=== PATIENT | male | born 1990 | race Caucasian/White ===

== ENCOUNTER 2022-10-13 22:05 | Inpatient (IN) ==
[2022-10-13] MEDS ORDERED: PIPERACILLIN/TAZOBACTAM 4.5 GM/120 ML BAG IV ONE (22:21)
[2022-10-13] MEDS ORDERED: VANCOMYCIN CONSULT ACTIVE PRN (22:21)
[2022-10-13] MEDS ORDERED: VANCOMYCIN HCL IV ONE (22:21)
[2022-10-13] MEDS ORDERED: SODIUM CHLORIDE 0.9% IV ONE (22:21)
[2022-10-13] MEDS ORDERED: VANCOMYCIN HCL 1,000 MG in SODIUM CHLORIDE 0.9% 500 ML IV ONE (22:21)
[2022-10-13] MEDS ORDERED: Patient's HEIGHT &/or WEIGHT Needed STA (22:26)
[2022-10-13] MEDS ORDERED: SODIUM CHLORIDE 0.9% 1000ML 1,000 ML IV SCH (22:30)
[2022-10-13] MEDS ORDERED: SODIUM CHLORIDE 0.9% 1000ML 500 ML IV SCH (22:30)
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
[2022-10-13 22:52] LABS: Basophils # (auto) 0.03 K/uL (0-0.2); Basophils % (auto) 0.3 %; Eosinophils # (auto) 0.11 K/uL (0-0.50); Hematocrit (blood only) 31.6 % (42.0-52.0); Hemoglobin 10.1 g/dl (14.0-18.0); Immature Granulocytes # (auto) 0.04 K/uL (0.01-0.20); Immature Granulocytes % (auto) 0.4 %; Lymphocytes # (auto) 1.52 K/uL (1.2-3.4); Lymphocytes % (auto) 13.5 %; Mean Corpuscular Hemoglobin 24.9 pg (25.0-34.0); Mean Platelet Volume 9.1 fL (9.4-12.4); Monocytes # (auto) 0.62 K/uL (0.11-0.59); Monocytes % (auto) 5.5 %; Neutrophils # (auto) 8.92 K/uL (1.40-6.50); Neutrophils % (auto) 79.3 %; Platelet Count 381 K/uL (130-400); RDW Coefficient of Variation 14.4 % (11.5-14.5); RDW Standard Deviation 40.8 fL (36.4-46.3); Red Blood Count 4.05 M/uL (4.70-6.10); White Blood Count 11.24 K/ul (4.8-10.8)
[2022-10-13 22:52] LABS: Appearance Urine Cloudy (Clear); Bacteria Urine Automated 3+ (Negative); Bilirubin Urine Negative (Negative); Blood Urine Trace (Negative); Color Urine Yellow; Glucose Urine UA Negative (Negative); Ketones Urine Negative (Negative); Leukocyte Esterase Urine 3+ (Negative); Nitrite Urine Negative (Negative); Protein Urine Negative (Negative); Specific Gravity Urine 1.013 (1.000-1.030); Urobilinogen Urine Negative (Negative); WBC Urine Automated >30 /hpf (0-5); pH Urine 7.5 (4.5-7.5)
[2022-10-13 23:09] LABS: Alanine Aminotransferase 12 U/L (7-52); Albumin Level 2.9 gm/dl (3.4-5.0); Alkaline Phosphatase 96 U/L (34-104); Anion Gap 7 (3-11); Aspartate Aminotransferase 11 U/L (13-39); BUN Creatinine Ratio 14.6 (10-20); Bilirubin,Total 0.1 mg/dl (0.2-1.0); Blood Urea Nitrogen 7 mg/dl (6-23); Calcium 8.2 mg/dl (8.5-10.1); Carbon Dioxide 25 mmol/L (21-32); Chloride 102 mmol/L (98-107); Creatinine Clr Calc Pharmacy 125.3 ml/min; Est GFR (African American) > 150.0 ml/min; Est GFR (Non-African American) 145.8 ml/min; Glucose 151 mg/dl (70-99(Fasting)); Magnesium 1.5 mg/dl (1.7-2.4); Potassium 3.5 mmol/L (3.5-5.1); Sodium 134 mmol/L (136-145); Total Protein 6.8 gm/dl (6.0-8.3)
[2022-10-13 23:15] LABS: Troponin I High Sensitivity 10.6 pg/ml (0-20)
[2022-10-13] MEDS ORDERED: OPTIRAY 350 100ml IV ONE (23:21)
[2022-10-13] MEDS ORDERED: GABAPENTIN 600 MG TAB PO STA (23:41)
[2022-10-13 23:46] LABS: Adenovirus PCR Not Detected (NotDetected); Bordetella parapertussis PCR Not Detected (NotDetected); Bordetella pertussis PCR Not Detected (NotDetected); Chlamydia pneumoniae PCR Not Detected (NotDetected); Coronavirus 229E PCR Not Detected (NotDetected); Coronavirus CoV-2 (COVID19)PCR Not Detected (NotDetected); Coronavirus HKU1 PCR Not Detected (NotDetected); Coronavirus NL63 PCR Not Detected (NotDetected); Coronavirus OC43PCR Not Detected (NotDetected); Human Metapneumovirus PCR Not Detected (NotDetected); Influenza A PCR Not Detected (NotDetected); Influenza B PCR Not Detected (NotDetected); Mycoplasma pneumoniae PCR Not Detected (NotDetected); Parainfluenza Virus 1 PCR Not Detected (NotDetected); Parainfluenza Virus 2 PCR Not Detected (NotDetected); Parainfluenza Virus 3 PCR Not Detected (NotDetected); Parainfluenza Virus 4 PCR Not Detected (NotDetected); Respiratory Syncytial VirusPCR Not Detected (NotDetected); Rhinovirus/Enterovirus PCR Not Detected (NotDetected)
[2022-10-13] MEDS: MAGNESIUM SULFATE / D5W 1 GM/100 ML BAG IV SCH (23:51)
--- NOTE | 2022-10-13 23:55 | CT Scan Report ---
Exam(s): CT ABDOMEN + PELVIS With Contrast IV Amt: 90ml EXAM: CT Abdomen and Pelvis With Intravenous Contrast CLINICAL HISTORY: Reason for exam: buttock infx, stage 4 Dec Ulcers. TECHNIQUE: Axial computed tomography images of the abdomen and pelvis with intravenous contrast. CTDI is 5.55 mGy and DLP is 297.47 mGy-cm. Automated exposure control was utilized for the study. A dose lowering technique was utilized adhering to the principles of ALARA. CONTRAST: Patient received 90ml of IV contrast COMPARISON: No relevant prior studies available. FINDINGS: Lung bases: Unremarkable. No mass. No consolidation. ABDOMEN: Liver: Unremarkable. No mass. Gallbladder and bile ducts: Unremarkable. No calcified stones. No ductal dilation. Pancreas: Unremarkable. No mass. No ductal dilation. Spleen: Unremarkable. No splenomegaly. Adrenals: Unremarkable. No mass. Kidneys and ureters: Unremarkable. No solid mass. No hydronephrosis. Stomach and bowel: Left upper quadrant colostomy. No obstruction. No mucosal thickening. PELVIS: Appendix: No findings to suggest acute appendicitis. Bladder: Hernandez catheter in place. Reproductive: Unremarkable as visualized. ABDOMEN and PELVIS: Intraperitoneal space: Unremarkable. No free air. No significant fluid collection. Bones/joints: Surgical hardware in place within the upper lumbar spine. No acute fracture. No dislocation. Soft tissues: Stage IV decubitus ulcers extending to the ischial tuberosities bilaterally (image 85 series 2) there is significant sclerosis of the underlying bone involvement is presumed. There is a small air and fluid collection adjacent to the right ischial tuberosity (image 88 series 2) which measures approximately 2.8 x 2.3 cm. Vasculature: Unremarkable. No abdominal aortic aneurysm. Lymph nodes: Unremarkable. No enlarged lymph nodes. IMPRESSION: Bilateral stage IV decubiti ulcers overlying the ischial tuberosities with presumed involvement of the underlying bone. Air and fluid collection adjacent to the right ischial tuberosity measuring up to 2.3 cm. Electronically signed by: Cam Marcos MD 10/13/22 23:53 PM
[2022-10-13 23:59] LABS: C Reactive Protein 25.63 mg/dl (0-0.5)
[2022-10-14] MEDS: MAGNESIUM SULFATE / D5W 1 GM/100 ML BAG IV SCH (00:51)
--- NOTE | 2022-10-14 01:48 | History & Physical Report ---
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 60 mg subcu every 12 hours Neurogenic bladder- Continue oxybutynin Hold doxazosin due to borderline blood pressure at this time History of Present Illness Chief Complaint: The patient is referred to the emergency department from [facility] due to development of a temperature, cough and generalized illness associated with known skin lesions secondary to paraplegia Primary Care Provider: AMERICO De Paz The patient is a 32-year-old male with a past medical history including neurogenic bladder, hiatal hernia with GERD, nutritional deficiency, decubitus ulcer of ischium stage IV, saddle pulmonary embolus, chronic pruritus, hemorrhoid, paraplegia following spinal cord injury. He developed a temperature while at the present today, had been given a dose of Levaquin p.o., and then sent to the emergency department. CT scan of abdomen pelvis showed bilateral stage IV decubitus ulcers overlying the ischial tuberosities with presumed involvement of the underlying bone. Air and fluid collection adjacent to the right ischial tuberosity measuring up to 2.3 cm Allergies Allergy/AdvReac Type Severity Reaction Status Date / Time sulfamethoxazole Allergy Intermediate Unknown Verified 10/14/22 02:17 [From Bactrim] trimethoprim [From Bactrim] Allergy Intermediate Unknown Verified 10/14/22 02:17 Home Medications Medication Instructions Recorded Confirmed Type Lactated Ringers Iv 150 ml IV .HR 10/14/22 10/14/22 History acetaminophen 325 mg tablet 650 mg PO BID 10/14/22 10/14/22 History (Tylenol) ascorbic acid (vitamin C) 500 mg 500 mg PO BID 10/14/22 10/14/22 History tablet (Vitamin C) cyclobenzaprine 10 mg tablet 10 mg PO TID 10/14/22 10/14/22 History diphenhydramine HCl 25 mg capsule 25 mg PO HS 10/14/22 10/14/22 History (Benadryl) doxazosin 8 mg tablet 8 mg PO HS 10/14/22 10/14/22 History enoxaparin 60 mg/0.6 mL 60 mg subcut BID 10/14/22 10/14/22 History subcutaneous syringe (Lovenox) ferrous sulfate 324 mg (65 mg 324 mg PO Q OTHER DAY 10/14/22 10/14/22 History iron) tablet,delayed release gabapentin 600 mg tablet 1,200 mg PO TID 10/14/22 10/14/22 History lidocaine 5 % topical patch 2 patch topical DAILY 10/14/22 10/14/22 History magnesium oxide 800 mg PO BID 10/14/22 10/14/22 History metoprolol tartrate 25 mg tablet 25 mg PO BID 10/14/22 10/14/22 History multivitamin 1 tab PO DAILY 10/14/22 10/14/22 History oxcarbazepine 600 mg tablet 600 mg PO BID 10/14/22 10/14/22 History (Trileptal) oxybutynin chloride 5 mg tablet 5 mg PO BID 10/14/22 10/14/22 History sennosides 8.6 mg-docusate sodium 2 tab-cap PO BID 10/14/22 10/14/22 History 50 mg tablet (Senna-S) Past Med/Surg History Medical History (Updated 10/14/22 @ 01:51 by Sandy Marcos PA-C) Atopic dermatitis 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 traumatic injury Chronic pruritus Constipation Decubitus ulcer of ischium, stage 4 Hemorrhoid Hiatal hernia with GERD without esophagitis Neurogenic bladder Nutritional deficiency 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 Social History Smoking Status: Former smoker Hx Alcohol Use: No Hx Substance Use: No Preferred Language: Latvian Communication Ability: Effective Feltmaker And Weigher Required: No Beliefs That Will Affect Care: None Feels Safe at Home: Yes Review of Systems Review of Systems: The patient denies chest pain, palpitations, shortness of breath, dyspnea on exertion, sore throat, fevers, chills, sweats, nausea, vomiting, diarrhea , constipation, abdominal pain, pelvic pain, blood in urine or stool, dysuria, urinary frequency or urgency, lightheadedness, dizziness, headache, memory loss, loss of consciousness, rash, abnormal bruising or bleeding, generalized arthralgias or myalgias, back or neck pain, or night sweats. The review of systems is otherwise negative other than for that already noted above, and at least 10 systems have been reviewed. Physical Exam Physical Exam: The patient is awake, alert and oriented 3, normocephalic and atraumatic, lying in bed and in no acute distress. HEENT--PERRL, EOMI, mucous membranes and oropharynx dry. Neck--supple. No JVD. No bruits. Thyroid normal, trachea midline, no adenopathy. Heart--normal S1 and S2. No murmurs, rubs or gallops. Lungs--clear bilaterally, no respiratory distress, no accessory muscle use. Abdomen--normal bowel sounds and soft. Nontender. Nondistended, no hernias or masses, no organomegaly. Extremities-- No edema. Dermatologic--multiple large wounds bilateral ischial tuberosity areas with bone exposure as noted in the ED record Neurologic--paraplegia Rheumatologic--paraplegia Psychiatric--normal affect. Results & Data Results & Data Vital Signs (Past 12 Hours) Vital Signs Temp Pulse Pulse Resp BP BP Pulse Ox 10/14/22 01:28 98 H 16 111/60 97 10/13/22 22:17 10/14/22 00:28 97 H 19 110/61 97 10/13/22 23:00 104 H 16 105/61 98 10/13/22 22:53 103 H 24 108/62 97 10/13/22 22:33 37.5 C 106 H 19 110/72 97 O2 Del Method 10/14/22 01:28 Room Air 10/13/22 22:17 Room Air 10/14/22 00:28 Room Air 10/13/22 23:00 10/13/22 22:53 Room Air 10/13/22 22:33 Room Air Laboratory Results Laboratory Results WBC 11.24 K/ul (4.8-10.8) H 10/13/22 22:06 RBC 4.05 M/uL (4.70-6.10) L 10/13/22 22:06 Hgb 10.1 g/dl (14.0-18.0) L 10/13/22 22:06 Hct 31.6 % (42.0-52.0) L 10/13/22 22:06 MCV 78.0 fL (80.0-100.0) L 10/13/22 22:06 MCH 24.9 pg (25.0-34.0) L 10/13/22 22:06 MCHC 32.0 g/dL (32.0-36.0) 10/13/22 22:06 RDW Std Deviation 40.8 fL (36.4-46.3) 10/13/22 22:06 RDW Coeff of Marcela 14.4 % (11.5-14.5) 10/13/22 22:06 Plt Count 381 K/uL (130-400) 10/13/22 22:06 MPV 9.1 fL (9.4-12.4) L 10/13/22 22:06 Immature Gran % (Auto) 0.4 % 10/13/22 22:06 Neut % (Auto) 79.3 % 10/13/22 22:06 Lymph % (Auto) 13.5 % 10/13/22 22:06 [place] % (Auto) 5.5 % 10/13/22 22:06 Eos % (Auto) 1.0 % 10/13/22 22:06 Baso % (Auto) 0.3 % 10/13/22 22:06 Neut # (Auto) 8.92 K/uL (1.40-6.50) H 10/13/22 22:06 Lymph # (Auto) 1.52 K/uL (1.2-3.4) 10/13/22 22:06 [place] # (Auto) 0.62 K/uL (0.11-0.59) H 10/13/22 22:06 Eos # (Auto) 0.11 K/uL (0-0.50) 10/13/22 22:06 Baso # (Auto) 0.03 K/uL (0-0.2) 10/13/22 22:06 Immature Gran # (Auto) 0.04 K/uL (0.01-0.20) 10/13/22 22:06 ESR 101 mm/hr (0-15) H 10/13/22 22:06 Sodium 134 mmol/L (136-145) L 10/13/22 22:06 Potassium 3.5 mmol/L (3.5-5.1) 10/13/22 22:06 Chloride 102 mmol/L (98-107) 10/13/22 22:06 Carbon Dioxide 25 mmol/L (21-32) 10/13/22 22:06 Anion Gap 7 (3-11) 10/13/22 22:06 BUN 7 mg/dl (6-23) 10/13/22 22:06 Creatinine 0.48 mg/dl (0.6-1.4) L 10/13/22 22:06 Est Cr Clr Drug Dosing 125.3 ml/min 10/13/22 22:06 Est GFR ( Amer) > 150.0 ml/min 10/13/22 22:06 Est GFR (Non-Af Amer) 145.8 ml/min 10/13/22 22:06 BUN/Creatinine Ratio 14.6 (10-20) 10/13/22 22:06 Glucose 151 mg/dl (70-99(Fasting)) H 10/13/22 22:06 Lactate 1.5 mmol/L (0.4-2.0) 10/13/22 22:06 Calcium 8.2 mg/dl (8.5-10.1) L 10/13/22 22:06 Magnesium 1.5 mg/dl (1.7-2.4) L 10/13/22 22:06 Total Bilirubin 0.1 mg/dl (0.2-1.0) L 10/13/22 22:06 Direct Bilirubin 0.0 mg/dl (0-0.2) 10/13/22 22:06 AST 11 U/L (13-39) L 10/13/22 22:06 ALT 12 U/L (7-52) 10/13/22 22:06 Alkaline Phosphatase 96 U/L (34-104) 10/13/22 22:06 Troponin I High Sens 10.6 pg/ml (0-20) 10/13/22 22:06 C-Reactive Protein 25.63 mg/dl (0-0.5) H 10/13/22 22:06 Total Protein 6.8 gm/dl (6.0-8.3) 10/13/22 22: Albumin 2.9 gm/dl (3.4-5.0) L 10/13/22 22:06 Procalcitonin 0.37 ng/ml (0-0.5) 10/13/22 22: Urine Color Yellow 10/13/22 22: Urine Appearance Cloudy (Clear) A 10/13/22 22: Urine pH 7.5 (4.5-7.5) 10/13/22 22: Ur Specific [place] 1.013 (1.000-1.030) 10/13/22 22: Urine Protein Negative (Negative) 10/13/22 22: Urine Glucose (UA) Negative (Negative) 10/13/22 22: Urine Ketones Negative (Negative) 10/13/22 22: Urine Blood Trace (Negative) H 10/13/22: Urine Nitrite Negative (Negative) 10/13/22 22: Urine Bilirubin Negative (Negative) 10/13/22 22: Urine Urobilinogen Negative (Negative) 10/13/22 22: Ur Leukocyte Esterase 3+ (Negative) H 10/13/22 22: Urine WBC (Auto) >30 /hpf (0-5) H 10/13/22 22: Urine RBC (Auto) 5-10 /hpf (0-4) H 10/13/22 22: U Hyaline Cast (Auto) 10-30 /lpf (0-5) H 10/13/22 22: U Epithel Cells (Auto) 10-20 /lpf (0-5) H 10/13/22 22: Urine Bacteria (Auto) 3+ (Negative) H 10/13/22 22:26 Adenovirus (PCR) Not Detected (NotDetected) 10/13/22 22: B. pertussis DNA (PCR) Not Detected (NotDetected) 10/13/22 22:26 B.parapertussis DNA PCR Not Detected (NotDetected) 10/13/22 22:26 C. pneumoniae DNA (PCR) Not Detected (NotDetected) 10/13/22 22:26 Coronavirus OC43 (PCR) Not Detected (NotDetected) 10/13/22 22:26 Coronavirus HKU1 (PCR) Not Detected (NotDetected) 10/13/22 22:26 Coronavirus 229E (PCR) Not Detected (NotDetected) 10/13/22 22:26 SARS-CoV-2 (PCR) Not Detected (NotDetected) 10/13/22 22:26 Coronavirus NL63 (PCR) Not Detected (NotDetected) 10/13/22 22:26 Human Metapneumovir PCR Not Detected (NotDetected) 10/13/22 22:26 Influenza Type A (PCR) Not Detected (NotDetected) 10/13/22 22:26 Influenza Type B (PCR) Not Detected (NotDetected) 10/13/22 22:26 M. pneumoniae (PCR) Not Detected (NotDetected) 10/13/22 22:26 Parainfluenza 1 (PCR) Not Detected (NotDetected) 10/13/22 22:26 Parainfluenza 2 (PCR) Not Detected (NotDetected) 10/13/22 22:26 Parainfluenza 3 (PCR) Not Detected (NotDetected) 10/13/22 22:26 Parainfluenza 4 (PCR) Not Detected (NotDetected) 10/13/22 22:26 RSV (PCR) Not Detected (NotDetected) 10/13/22 22:26 Entero/Rhino (PCR) Not Detected (NotDetected) 10/13/22 22:26 Impressions Abdomen/Pelvis CT 10/13/22 22:16 Exam(s): CT ABDOMEN + PELVIS With Contrast IV Amt: 90ml EXAM: CT Abdomen and Pelvis With Intravenous Contrast CLINICAL HISTORY: Reason for exam: buttock infx, stage 4 Dec Ulcers. TECHNIQUE: Axial computed tomography images of the abdomen and pelvis with intravenous contrast. CTDI is 5.55 mGy and DLP is 297.47 mGy-cm. Automated exposure control was utilized for the study. A dose lowering technique was utilized adhering to the principles of ALARA. CONTRAST: Patient received 90ml of IV contrast COMPARISON: No relevant prior studies available. FINDINGS: Lung bases: Unremarkable. No mass. No consolidation. ABDOMEN: Liver: Unremarkable. No mass. Gallbladder and bile ducts: Unremarkable. No calcified stones. No ductal dilation. Pancreas: Unremarkable. No mass. No ductal dilation. Spleen: Unremarkable. No splenomegaly. Adrenals: Unremarkable. No mass. Kidneys and ureters: Unremarkable. No solid mass. No hydronephrosis. Stomach and bowel: Left upper quadrant colostomy. No obstruction. No mucosal thickening. PELVIS: Appendix: No findings to suggest acute appendicitis. Bladder: Hernandez catheter in place. Reproductive: Unremarkable as visualized. ABDOMEN and PELVIS: Intraperitoneal space: Unremarkable. No free air. No significant fluid collection. Bones/joints: Surgical hardware in place within the upper lumbar spine. No acute fracture. No dislocation. Soft tissues: Stage IV decubitus ulcers extending to the ischial tuberosities bilaterally (image 85 series 2) there is significant sclerosis of the underlying bone involvement is presumed. There is a small air and fluid collection adjacent to the right ischial tuberosity (image 88 series 2) which measures approximately 2.8 x 2.3 cm. Vasculature: Unremarkable. No abdominal aortic aneurysm. Lymph nodes: Unremarkable. No enlarged lymph nodes. IMPRESSION: Bilateral stage IV decubiti ulcers overlying the ischial tuberosities with presumed involvement of the underlying bone. Air and fluid collection adjacent to the right ischial tuberosity measuring up to 2.3 cm. Electronically signed by: Cam Marcos MD 10/13/22 23:53 PM Low Code Status & VTE Plan Code Status Full code VTE Prophylaxis Plan VTE Prophylaxis will be ordered: Yes PG Care Time/CCT Total # of Minutes Spent Total Time Spent with Patient: Total time spent is greater than 50% in coordination of care (as documented) at patient's floor/unit and/or counseling patient: Coding Level of Care Code 93190 INT INP/OBS CARE 3/75MIN Diagnoses Sepsis A41.9 Sepsis acute organ dysfunction status: unspecified Sepsis type: sepsis due to unspecified organism Osteomyelitis M86.9 Osteomyelitis location: unspecified site Osteomyelitis type: unspecified type Atopic dermatitis L20.9 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 traumatic injury G89.21 Neurogenic bladder N31.9 Hiatal hernia with GERD without esophagitis K44.9; K21.9 Constipation K59.00 Nutritional deficiency E63.9 Decubitus ulcer of ischium, stage 4 L89.304 Saddle pulmonary embolus I26.92 Chronic pruritus L29.9 Hemorrhoid K64.9 Paraplegia following spinal cord injury G82.20 (1) Sepsis Sepsis acute organ dysfunction status: unspecified Sepsis type: sepsis due to unspecified organism Qualified Code(s): A41.9 - Sepsis, unspecified organism (2) Osteomyelitis Osteomyelitis location: unspecified site Osteomyelitis type: unspecified type Qualified Code(s): M86.9 - Osteomyelitis, unspecified
[2022-10-14] MEDS: NSS + 20MEQ KCL 20 MEQ/1,000 ML BAG IV SCH ×2 (02:30→20:50)
[2022-10-14] MEDS ORDERED: ONDANSETRON INJ 2 MG/ML 2 ML VIAL IV PRN (02:39)
[2022-10-14] MEDS ORDERED: VANCOMYCIN CONSULT ACTIVE PRN (02:39)
[2022-10-14] MEDS: MoRPHine SULFATE 2 MG/ML CARP IV PRN ×5 (04:16→21:06)
[2022-10-14] MEDS: VANCOMYCIN HCL 1,000 MG in SODIUM CHLORIDE 0.9% 250 ML IV SCH ×3 (04:24→21:07)
[2022-10-14] MEDS: PIPERACILLIN/TAZOBACTAM 4.5 GM in DEXTROSE 5% 100 ML IV SCH ×3 (05:55→22:35)
--- NOTE | 2022-10-14 07:42 | Electrocardiogram Report ---
Test Reason : Blood Pressure : / mmHG Vent. Rate : 107 BPM Atrial Rate : 107 BPM P-R Int : 128 ms QRS Dur : 074 ms QT Int : 340 ms P-R-T Axes : 064 058 057 degrees QTc Int : 453 ms Sinus tachycardia Incomplete right bundle branch block Borderline ECG No previous ECGs available Confirmed by Matt Linares ([id number]) on 10/14/2022 7:41:58 AM Referred By: [facility] Confirmed By:Morales Linares
--- NOTE | 2022-10-14 07:56 | XRay Report ---
XR chest 1V portable HISTORY: Sepsis COMPARISON: None. FINDINGS: The lungs are clear. Cardiac silhouette is normal in size. No pleural effusions. No pneumot horax. Lower thoracolumbar spinal fusion hardware is noted. IMPRESSION: No acute process. ACT 112: Negative or not required by law. Electronically signed by: Baron Godwin M.D. 10/14/2022 7:55 AM
[2022-10-14] MEDS: ACETAMINOPHEN 325 MG TAB PO SCH ×2 (08:08→20:58)
[2022-10-14] MEDS: ENOXAPARIN INJ 60 MG/0.6 ML SYR SQ SCH ×2 (08:08→21:01)
[2022-10-14] MEDS: METOPROLOL TARTRATE 25 MG TAB PO SCH ×2 (08:09→20:59)
[2022-10-14] MEDS: OXYBUTYNIN CHLORIDE 5 MG TAB PO SCH ×2 (08:09→20:59)
[2022-10-14] MEDS: OXcarbazepine 150 MG TABLET PO SCH ×2 (08:09→21:00)
[2022-10-14] MEDS: DOCUSATE SODIUM/SENNA 50/8.6MG TAB PO SCH ×2 (08:09→20:59)
[2022-10-14] MEDS: GABAPENTIN 600 MG TAB PO SCH ×3 (08:10→21:01)
[2022-10-14] MEDS: MULTIVITAMIN TAB PO SCH (08:10)
[2022-10-14] MEDS: ASCORBIC ACID 500 MG TAB PO SCH ×2 (08:10→20:59)
[2022-10-14] MEDS: CYCLOBENZAPRINE HCL 10 MG TAB PO SCH ×3 (08:10→21:01)
[2022-10-14] MEDS: MAGNESIUM OXIDE 400 MG TAB PO SCH ×2 (08:10→20:58)
[2022-10-14] MEDS: FERROUS SULFATE 325 MG TAB PO SCH (08:10)
--- NOTE | 2022-10-14 10:05 | Pharmacy Report ---
Pharmacy PK ABX Note - Date of Service October 14, 2022 - Assessment and Plan Assessment 32 year old M receiving VANCOMCYIN/ZOSYN for treatment of DECUB ULCERS W/ OSTEO. Pertinent microbiologic data includes: CULTURES PENDING. Hx of MRSA. Patient with paraplegia. Plan Vancomycin * Loading dose: 2244 mg IV x 1 * Maintenance dose: 1000 mg IV every 8 hours * Regimen is predicted to achieve target AUC/CLAUDIA of 400-600 mg/L.hr * Trough ordered for 10/15 @0330 Pharmacy will continue to follow and will adjust dose/frequency as necessary. Thank you. Pharmacy has transitioned to AUC monitoring for vancomycin. AUC/CLAUDIA is the preferred PK/PD target and is associated with decreased risk of nephrotoxicity compared to traditional trough targets.
[2022-10-14] MEDS: COLLAGENASE OINT 30 GM TUBE EXT SCH (12:16)
[2022-10-14] MEDS: PROSOURCE NO CARB 30 ML/PKT PO SCH ×2 (13:51→21:02)
--- NOTE | 2022-10-14 14:21 | Hospitalist Progress Note ---
Date of Service October 14, 2022 Assessment & Plan (1) Decubitus ulcer of ischium, stage 4: Plan: Stage IV pressure ulcer of the bilateral ischium. Chronic since 2020. I was able to visualize the wounds today. Erythematous bases with slough noted. Will plan to apply Santyl to the wounds daily, and consult the wound care nurse. Right ischial wound would benefit from a wound VAC. Blood, wound, and urine cultures are pending. Continue IV Vancomycin and Zosyn pending culture results. Wounds vs UTI as primary source of infection. Zofran 4 mg IV every 6 hours as needed Acetaminophen 650 mg p.o. every 6 hours as needed for mild pain or fever NSS + KCl 20 mEq at 80 mils per hour Low air loss mattress, waffle boots, reposition q2hrs for offloading. [employer] protein supplement ordered. Ultimately, the patient will need close follow-up and wound care after disch arge. Patient would benefit from [facility] stay after discharge. He will need an offloading mattress in addition to a ROHO cushion for offloading in his wheel chair. Recommend increased protein intake as an outpatient as well. Patient will also need close follow-up with the wound center. Refer to [facility] upon discharge. (2) Acute osteomyelitis: Plan: CT 10/13/22 showing bilateral ischial wounds with bony involvement of the ischial tuberostities. Fluid collection measuring 2.3cm adjacent to the right ischial tuberosity. Consult ID. Consider IR consult for drainage of fluid collection to the right ischial tuberosity and bone bx. (3) Paraplegia following spinal cord injury: Plan: Paraplegia secondary to spinal cord injury/chronic pain syndrome Stable neurologic deficits Continue cyclobenzaprine/gabapentin/Trileptal/oxybutynin/senna S (4) Saddle pulmonary embolus: Plan: On chronic Lovenox 60 mg sq every 12 hours. (5) Neurogenic bladder: Plan: Continue oxybutynin Hold doxazosin due to borderline blood pressure at this time. (6) Pressure injury of deep tissue of right ankle: Plan: Patient also has a deep tissue injury to the right anterior ankle. No open areas noted. Patient states this occurred from wearing a compression stocking. Monitor. Protect with an Optifoam. Will order bilateral waffle boots for offloading as well. (7) Urinary tract infection: Plan: UA with 3+ bacteria. Culture is pending. Unclear if UTI or ischial wounds are primary source of infection. Continue IV Vancomyin and Zosyn pending sensitivities. Plan Disposition: med/surg tele DVT prophylaxis: on chronic Lovenox sub q Diet: Regular Code: Full Admission and Anticipated Discharge Date Admission Date: October 14, 2022 Subjective 32 year old SCI [facility] admitted with possible sepsis. Patient was recently moved into [facility] approximately 3 days ago. Unfortunately, he became febrile and was transferred to [facility] for further evaluation. He was noted to have bilateral stage IV pressure ulcers of the ischium on admission. CT scan shows bony involvement consistent with osteomyelitis. ? infection r/t wounds of ischium vs UTI. UA with 3+ bacteria. Blood, urine, and wound cultures are pendin g. Patient reports a hx of these wounds since at least 2020. Possibly underwent surgical vs bedside debridement at initial presentation. He reports he had a wound VAC in place until recently. Patient reports he tries to offload, but does sit in his wheelchair at least 3hrs per day. Review of Systems Constitutional: no fever and no chills Physical Exam Constitutional: average body habitus; no acute distress Eyes: + anicteric sclerae ENMT: Ears: no hearing impairment Neck: normal visual inspection Respiratory: normal respiratory effort, lungs clear to auscultation Cardiovascular: Rate/Rhythm: regular rate and regular rhythm Gastrointestinal (Abdomen): Inspection/Auscultation: normal bowel sounds Percussion/Palpation: abdomen soft; abdomen nontender Ostomy device intact. Musculoskeletal: Head/Neck/Chest: normocephalic Skin: + wound (bilateral ischium wounds. Erythematous base with slough noted. ) Psychiatric: A+Ox3, euthymic affect Results & Data Results & Data Vital Signs (Past 12 Hours) Vital Signs Temp Pulse Pulse Resp BP Pulse Ox O2 Del Method 10/14/22 12:15 36.6 C 78 16 96/63 L 100 Room Air 10/14/22 11:25 Room Air 10/14/22 09:18 37.2 C 10/14/22 07:53 101 H 10/14/22 07:52 37.9 C H 95 H 16 105/66 97 Room Air 10/14/22 03:56 110 H 10/14/22 02:40 37.4 C 96 H 18 104/68 98 Room Air 10/14/22 02:18 Room Air PG Care Time/CCT Total # of Minutes Spent Total Time Spent with Patient: Total time spent is greater than 50% in coordination of care (as documented) at patient's floor/unit and/or counseling patient: Coding [place] [address] SUB INP/OBS CARE 3/50MIN Patient Type Established History Detailed Exam Detailed Medical Decision Making High Complexity Diagnoses Decubitus ulcer of ischium, stage 4 L89.304 Acute osteomyelitis M86.10 Paraplegia following spinal cord injury G82.20 Saddle pulmonary embolus I26.92 Neurogenic bladder N31.9 Pressure injury of deep tissue of right ankle L89.516 Urinary tract infection N39.0
[2022-10-14] MEDS: diphenhydrAMINE Capsule 25 MG CAP PO SCH (20:58)
[2022-10-15] MEDS: MoRPHine SULFATE 2 MG/ML CARP IV PRN ×2 (02:47→08:38)
[2022-10-15] MEDS ORDERED: VANCOMYCIN LEVEL ONE (03:30)
[2022-10-15 04:05] LABS: Basophils # (auto) 0.02 K/uL (0-0.2); Basophils % (auto) 0.4 %; Eosinophils # (auto) 0.65 K/uL (0-0.50); Eosinophils % (auto) 14.3 %; Hematocrit (blood only) 29.6 % (42.0-52.0); Hemoglobin 9.1 g/dl (14.0-18.0); Immature Granulocytes # (auto) 0.01 K/uL (0.01-0.20); Immature Granulocytes % (auto) 0.2 %; Lymphocytes # (auto) 1.47 K/uL (1.2-3.4); Lymphocytes % (auto) 32.2 %; Mean Corpuscular Hgb Conc 30.7 g/dL (32.0-36.0); Mean Corpuscular Volume 81.3 fL (80.0-100.0); Mean Platelet Volume 8.7 fL (9.4-12.4); Monocytes # (auto) 0.37 K/uL (0.11-0.59); Monocytes % (auto) 8.1 %; Neutrophils # (auto) 2.04 K/uL (1.40-6.50); Neutrophils % (auto) 44.8 %; Platelet Count 307 K/uL (130-400); RDW Coefficient of Variation 14.4 % (11.5-14.5); RDW Standard Deviation 42.6 fL (36.4-46.3); Red Blood Count 3.64 M/uL (4.70-6.10); White Blood Count 4.56 K/ul (4.8-10.8)
[2022-10-15 04:19] LABS: Alanine Aminotransferase 10 U/L (7-52); Albumin Globulin Ratio 0.8 (0.9-2); Albumin Level 2.7 gm/dl (3.4-5.0); Alkaline Phosphatase 74 U/L (34-104); Anion Gap 5 (3-11); Aspartate Aminotransferase 9 U/L (13-39); BUN Creatinine Ratio 17.2 (10-20); Bilirubin,Total 0.2 mg/dl (0.2-1.0); Blood Urea Nitrogen 11 mg/dl (6-23); Calcium 8.2 mg/dl (8.5-10.1); Carbon Dioxide 26 mmol/L (21-32); Chloride 106 mmol/L (98-107); Creatinine Clr Calc Pharmacy 140.3 ml/min; Est GFR (African American) > 150.0 ml/min; Est GFR (Non-African American) 130.5 ml/min; Globulin 3.4 gm/dl (2.5-4.0); Glucose 90 mg/dl (70-99(Fasting)); Magnesium 1.8 mg/dl (1.7-2.4); Potassium 4.2 mmol/L (3.5-5.1); Sodium 137 mmol/L (136-145); Total Protein 6.1 gm/dl (6.0-8.3)
[2022-10-15] MEDS: VANCOMYCIN HCL 1,000 MG in SODIUM CHLORIDE 0.9% 250 ML IV SCH ×3 (05:19→20:16)
[2022-10-15] MEDS: PIPERACILLIN/TAZOBACTAM 4.5 GM in DEXTROSE 5% 100 ML IV SCH ×3 (06:43→22:28)
[2022-10-15] MEDS: ACETAMINOPHEN 325 MG TAB PO SCH ×2 (08:33→20:23)
[2022-10-15] MEDS: ASCORBIC ACID 500 MG TAB PO SCH ×2 (08:34→20:24)
[2022-10-15] MEDS: CYCLOBENZAPRINE HCL 10 MG TAB PO SCH ×3 (08:35→20:24)
[2022-10-15] MEDS: ENOXAPARIN INJ 60 MG/0.6 ML SYR SQ SCH ×2 (08:35→20:23)
[2022-10-15] MEDS: DOCUSATE SODIUM/SENNA 50/8.6MG TAB PO SCH ×2 (08:35→20:32)
[2022-10-15] MEDS: GABAPENTIN 600 MG TAB PO SCH ×3 (08:36→20:25)
[2022-10-15] MEDS: MULTIVITAMIN TAB PO SCH (08:36)
[2022-10-15] MEDS: METOPROLOL TARTRATE 25 MG TAB PO SCH ×2 (08:36→20:32)
[2022-10-15] MEDS: MAGNESIUM OXIDE 400 MG TAB PO SCH ×2 (08:36→20:26)
[2022-10-15] MEDS: OXcarbazepine 150 MG TABLET PO SCH ×2 (08:37→20:23)
[2022-10-15] MEDS: PROSOURCE NO CARB 30 ML/PKT PO SCH ×2 (08:37→20:26)
[2022-10-15] MEDS: OXYBUTYNIN CHLORIDE 5 MG TAB PO SCH ×2 (08:37→20:25)
[2022-10-15] MEDS: COLLAGENASE OINT 30 GM TUBE EXT SCH ×2 (09:12→10:32)
[2022-10-15] MEDS ORDERED: MoRPHine SULFATE 2 MG/ML CARP IV STA ×2 (11:33→18:53)
--- NOTE | 2022-10-15 11:43 | Hospitalist Progress Note ---
Date of Service October 15, 2022 Assessment & Plan (1) Decubitus ulcer of ischium, stage 4: Plan: Stage IV pressure ulcer of the bilateral ischium. Chronic since 2020. - Continue to apply Santyl to the wounds daily, and consult the wound care nurse. Right ischial wound would benefit from a wound VAC. - Blood, wound, and urine cultures are pending. Continue IV Vancomycin and Zosyn pending culture results. - Acetaminophen 650 mg p.o. every 6 hours as needed for mild pain or fever - Add Percocet (tiered) for pain control not relieved by APAP - Cap fluids - Low air loss mattress, waffle boots, reposition q2hrs for offloading. - ProSource protein supplement ordered. - Probed R ischial wound with q-tip and sent for deep wound culture - Ideally, if could obtain records from [facility] where pt last received care, this would be helpful, order placed Ultimately, the patient will need close follow-up and wound care after discharge. Patient would benefit from [facility] stay after discharge. He will need an offloading mattress in addition to a ROHO cushion for offloading in his wheel chair. Recommend increased protein intake as an outpatient as well. Patient will also need close follow-up with the wound center. Refer to [facility] upon discharge. (2) Acute osteomyelitis: Plan: - CT 10/13/22 showing bilateral ischial wounds with bony involvement of the ischial tuberosities. Fluid collection measuring 2.3cm adjacent to the right ischial tuberosity. ESR 101 - Discussed w/ IR consult re: drainage of adjacent fluid or bone bx. 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 (5) Paraplegia following spinal cord injury: Plan: Paraplegia secondary to spinal cord injury/chronic pain syndrome - Stable neurologic deficits - Continue cyclobenzaprine/gabapentin/Trileptal/oxybutynin/senna S (6) Neurogenic bladder: Plan: Continue oxybutynin - Hold doxazosin due to borderline blood pressure at this time. (7) Pressure injury of deep tissue of right ankle: Plan: Patient also has a deep tissue injury to the right anterior ankle. No open areas noted. Patient states this occurred from wearing a compression stocking. - Protect with an Optifoam. - Will order bilateral waffle boots for offloading as well. Plan Plan as outlined above. Plan to be d/w Dr. Trent. Admission and Anticipated Discharge Date Admission Date: October 14, 2022 Subjective Patient seen on daily rounds this morning. He is currently lying in bed. Doesn't really engage much in conversation. Verbalized no specific complaints or concerns. Physical Exam Physical Exam: GENERAL: 32 yo wd/wn M. NAD. LUNGS: Clear to auscultation bilaterally. CARDIOVASCULAR: Regular rate and rhythm. SKIN: b/l stage IV ischial wounds, R slightly larger than left. No active bleeding. Moderate slough noted. Results & Data Results & Data Vital Signs (Past 12 Hours) Vital Signs Temp Pulse Pulse Resp BP Pulse Ox O2 Del Method 10/15/22 10:55 36.6 C 69 16 101/65 99 Room Air 10/15/22 06:48 36.6 C 86 18 100/66 100 Room Air 10/15/22 02:55 36.5 C 75 16 98/66 L 100 Room Air 10/15/22 01:29 101 H Laboratory Results 10/15/22 03:43 10/15/22 03:43 PG Care Time/CCT Total # of Minutes Spent Total Time Spent with Patient: Total time spent is greater than 50% in coordination of care (as documented) at patient's floor/unit and/or counseling patient: Coding Level of Care Code 47027 SUB INP/OBS CARE 3/50MIN Diagnoses Decubitus ulcer of ischium, stage 4 L89.304 Acute osteomyelitis M86.10 Urinary tract infection N39.0 Saddle pulmonary embolus I26.92 Paraplegia following spinal cord injury G82.20 Neurogenic bladder N31.9 Pressure injury of deep tissue of right ankle L89.516
[2022-10-15] MEDS: oxyCODONE/ACETAMINOPHEN 5mg/325mg TAB PO PRN ×3 (12:19→23:45)
[2022-10-15] MEDS: NSS + 20MEQ KCL 20 MEQ/1,000 ML BAG IV SCH (13:23)
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
[2022-10-15] MEDS ORDERED: MoRPHine SULFATE 2 MG/ML CARP ONE (18:56)
[2022-10-15] MEDS: diphenhydrAMINE Capsule 25 MG CAP PO SCH (20:25)
[2022-10-16] MEDS: VANCOMYCIN HCL 1,000 MG in SODIUM CHLORIDE 0.9% 250 ML IV SCH ×3 (03:47→20:40)
[2022-10-16] MEDS: PIPERACILLIN/TAZOBACTAM 4.5 GM in DEXTROSE 5% 100 ML IV SCH ×3 (05:32→22:21)
[2022-10-16] MEDS: NSS + 20MEQ KCL 20 MEQ/1,000 ML BAG IV SCH ×2 (06:27→22:20)
[2022-10-16 08:34] LABS: Basophils # (auto) 0.02 K/uL (0-0.2); Basophils % (auto) 0.6 %; Eosinophils # (auto) 0.74 K/uL (0-0.50); Eosinophils % (auto) 21.8 %; Hematocrit (blood only) 31.2 % (42.0-52.0); Hemoglobin 9.7 g/dl (14.0-18.0); Immature Granulocytes # (auto) 0.01 K/uL (0.01-0.20); Immature Granulocytes % (auto) 0.3 %; Lymphocytes # (auto) 1.17 K/uL (1.2-3.4); Lymphocytes % (auto) 34.4 %; Mean Corpuscular Hemoglobin 24.8 pg (25.0-34.0); Mean Corpuscular Hgb Conc 31.1 g/dL (32.0-36.0); Mean Corpuscular Volume 79.8 fL (80.0-100.0); Mean Platelet Volume 8.9 fL (9.4-12.4); Monocytes # (auto) 0.19 K/uL (0.11-0.59); Monocytes % (auto) 5.6 %; Neutrophils # (auto) 1.27 K/uL (1.40-6.50); Neutrophils % (auto) 37.3 %; Platelet Count 355 K/uL (130-400); RDW Standard Deviation 40.9 fL (36.4-46.3); Red Blood Count 3.91 M/uL (4.70-6.10)
[2022-10-16 08:51] LABS: Alanine Aminotransferase 61 U/L (7-52); Albumin Globulin Ratio 0.8 (0.9-2); Albumin Level 2.8 gm/dl (3.4-5.0); Alkaline Phosphatase 233 U/L (34-104); Anion Gap 3 (3-11); Aspartate Aminotransferase 52 U/L (13-39); BUN Creatinine Ratio 18.3 (10-20); Bilirubin,Total 0.1 mg/dl (0.2-1.0); Blood Urea Nitrogen 11 mg/dl (6-23); Calcium 8.4 mg/dl (8.5-10.1); Carbon Dioxide 29 mmol/L (21-32); Chloride 105 mmol/L (98-107); Creatinine Clr Calc Pharmacy 147.1 ml/min; Est GFR (African American) > 150.0 ml/min; Globulin 3.4 gm/dl (2.5-4.0); Glucose 96 mg/dl (70-99(Fasting)); Magnesium 1.6 mg/dl (1.7-2.4); Sodium 137 mmol/L (136-145); Total Protein 6.2 gm/dl (6.0-8.3)
[2022-10-16] MEDS ORDERED: MAGNESIUM SULFATE / D5W 1 GM/100 ML BAG IV ONE (09:09)
[2022-10-16] MEDS: ACETAMINOPHEN 325 MG TAB PO SCH ×2 (09:14→20:42)
[2022-10-16] MEDS: OXcarbazepine 150 MG TABLET PO SCH ×2 (09:15→20:45)
[2022-10-16] MEDS: MULTIVITAMIN TAB PO SCH (09:15)
[2022-10-16] MEDS: FERROUS SULFATE 325 MG TAB PO SCH (09:15)
[2022-10-16] MEDS: ASCORBIC ACID 500 MG TAB PO SCH ×2 (09:16→20:43)
[2022-10-16] MEDS: CYCLOBENZAPRINE HCL 10 MG TAB PO SCH ×3 (09:16→20:44)
[2022-10-16] MEDS: OXYBUTYNIN CHLORIDE 5 MG TAB PO SCH ×2 (09:16→20:45)
[2022-10-16] MEDS: DOCUSATE SODIUM/SENNA 50/8.6MG TAB PO SCH ×2 (09:16→20:41)
[2022-10-16] MEDS: MAGNESIUM OXIDE 400 MG TAB PO SCH ×2 (09:17→20:41)
[2022-10-16] MEDS: METOPROLOL TARTRATE 25 MG TAB PO SCH ×2 (09:17→20:42)
[2022-10-16] MEDS: PROSOURCE NO CARB 30 ML/PKT PO SCH ×2 (09:17→20:46)
[2022-10-16] MEDS: ENOXAPARIN INJ 60 MG/0.6 ML SYR SQ SCH ×2 (09:17→20:44)
[2022-10-16] MEDS: GABAPENTIN 600 MG TAB PO SCH ×3 (09:17→20:42)
[2022-10-16] MEDS: oxyCODONE/ACETAMINOPHEN 5mg/325mg TAB PO PRN ×5 (09:39→23:19)
--- NOTE | 2022-10-16 10:46 | Ultrasound Report ---
US gallbladder CLINICAL HISTORY: RUQ abd/pain TECHNIQUE: Multiple real-time sonographic images of the right upper quadrant were obtained. Comparison: None available at the time of this dictation. FINDINGS: The liver is diffusely homogenous with normal contour and echogenicity. No focal mass lesions are see n. No intrahepatic ductal dilatation is seen. No gallstones or sludge are identified within the g allbladder. The gallbladder wall is not thickened. There is no pericholecystic fluid present. A sonog raphic Suarez's sign was not elicited by the health insurance adjuster. The common duct measures 0.5 cm in diamet er at the level of the hepatic artery. The visualized portions of the pancreas appear normal. The right kidney shows normal echogenicity, cortical thickness and renal contour. The right kidney sh ows no evidence of hydronephrosis or mass. Trace free fluid is seen. IMPRESSION: Unremarkable right upper quadrant ultrasound. ACT 112: Negative or not required by law. Electronically signed by: Osiel Lamar M.D. 10/16/2022 10:45 AM
--- NOTE | 2022-10-16 10:48 | Electrocardiogram Report ---
Test Reason : Blood Pressure : / mmHG Vent. Rate : 079 BPM Atrial Rate : 079 BPM P-R Int : 138 ms QRS Dur : 082 ms QT Int : 388 ms P-R-T Axes : 073 066 055 degrees QTc Int : 444 ms Normal sinus rhythm Normal ECG When compared with ECG of 13-OCT-2022 22:17, No significant change was found Confirmed by Matt Linares ([id number]) on 10/16/2022 10:48:15 AM Referred By: Zandra DRISCOLL Confirmed By:Morales Linares
[2022-10-16] MEDS: COLLAGENASE OINT 30 GM TUBE EXT SCH (13:11)
--- NOTE | 2022-10-16 14:39 | Hospitalist Progress Note ---
Date of Service October 16, 2022 Assessment & Plan (1) Decubitus ulcer of ischium, stage 4: Plan: Stage IV pressure ulcer of the bilateral ischium. Chronic since 2020. - Continue to apply Santyl to the wounds daily, and consult the wound care nurse. Right ischial wound would benefit from a wound VAC. - Blood, wound, and urine cultures are pending. Continue IV Vancomycin and Zosyn pending culture results. - Acetaminophen 650 mg p.o. every 6 hours as needed for mild pain or fever - Add Percocet (tiered) for pain control not relieved by APAP - Low air loss mattress, waffle boots, reposition q2hrs for offloading. - ProSource protein supplement ordered. - Probed R ischial wound with q-tip and sent for deep wound culture - prelim Group B strep and staph - Ideally, if could obtain records from [facility] where pt last received care, this would be helpful, order placed Ultimately, the patient will need close follow-up and wound care after discharge. [facility]. He will need an offloading mattress in addition to a ROHO cushion for offloading in his wheel chair. Recommend increased protein intake as an outpatient as well. Patient will also need close follow-up with the wound center. Refer to [facility] upon discharge. (2) Acute osteomyelitis: Plan: - CT 10/13/22 showing bilateral ischial wounds with bony involvement of the ischial tuberosities. Fluid collection measuring 2.3cm adjacent to the right ischial tuberosity. ESR 101 - Discussed w/ IR consult re: drainage of adjacent fluid or bone bx. - Recommended deep wound culture with probing decubitus would obtain same fluid that is tracking/spreading to bone which was obtained 10/15 - Consulted ID - anticipate will require 6w (minimum) of tailored IV abx the rapy; however, will also require wound and bone debridement for definitive treatment - I have reached out to [facility] to d/w medical record administrator of the care home to determine if they would like to pursue transfer for this patient to a tertiary center as general surgery nor orthopedics will perform bone debridement (3) Urinary tract infection: Plan: - UA grossly abnormal - empirically on Vanc/Zosyn as above - Prelim urine cx with growth of 2 gram neg bacilli - Await speciation and tailor accordingly in conjunction with wound cultures (4) Abdominal pain: Plan: - Brief episode that occurred after eating dinner on 10/15 - Underwent RUQ ultrasound which is completely normal - Able to eat/drink today and has had no complaints (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 (6) Paraplegia following spinal cord injury: Plan: Paraplegia secondary to spinal cord injury/chronic pain syndrome - Stable neurologic deficits - Continue cyclobenzaprine/gabapentin/Trileptal/oxybutynin/senna S (7) Neurogenic bladder: Plan: Continue oxybutynin - Hold doxazosin due to borderline blood pressure at this time. (8) Pressure injury of deep tissue of right ankle: Plan: Patient also has a deep tissue injury to the right anterior ankle. No open areas noted. Patient states this occurred from wearing a compression stocking. - Protect with an Optifoam. - Will order bilateral waffle boots for offloading as well. Plan Continue plan as outlined above. Await call back from [facility] regarding plans to transfer patient to tertiary center for definitive treatment of his osteomyelitis. Repeat labs ordered for tomorrow morning. Will d/w Dr. Trent. Admission and Anticipated Discharge Date Admission Date: October 14, 2022 Subjective Patient seen on daily rounds this morning. He underwent ultrasound this AM due to c/o RUQ pain that occurred after eating dinner yesterday. No vomiting. He has had no complaints of abd pain or n/v this AM. He has no c/o fever, chills, cp or dyspnea. Physical Exam Physical Exam: GENERAL: 32 yo wd/wn M. NAD. LUNGS: Clear to auscultation bilaterally. CARDIOVASCULAR: Regular rate and rhythm. ABDOMEN: Soft, Nontender, nondistended. +BS. Neg salmeron's sign. Ostomy bag with stool. SKIN: b/l stage IV ischial wounds, R slightly larger than left. Results & Data Results & Data Vital Signs (Past 12 Hours) Vital Signs Temp Pulse Resp BP Pulse Ox O2 Del Method 10/16/22 12:11 36.6 C 78 16 95/55 L 98 Room Air 10/16/22 07:46 36.7 C 66 16 94/60 L 98 Room Air 10/16/22 04:00 36.7 C 69 20 90/59 L 97 Room Air Laboratory Results 10/16/22 07:43 10/16/22 07:43 PG Care Time/CCT Total # of Minutes Spent Total Time Spent with Patient: Total time spent is greater than 50% in coordination of care (as documented) at patient's floor/unit and/or counseling patient: Coding Level of Care Code 45893 SUB INP/OBS CARE 3/50MIN Diagnoses Decubitus ulcer of ischium, stage 4 L89.304 Acute osteomyelitis M86.10 Urinary tract infection N39.0 Abdominal pain R10.9 Saddle pulmonary embolus I26.92 Paraplegia following spinal cord injury G82.20 Neurogenic bladder N31.9 Pressure injury of deep tissue of right ankle L89.516
--- NOTE | 2022-10-16 14:48 | Pharmacy Report ---
Pharmacy PK ABX Note - Date of Service October 16, 2022 - Assessment and Plan Assessment 10/16: * Patient continues of vancomycin and piperacillin/tazobactam. * Trough level drawn 10/15 at 0330 rendered level of 11.3 mg/dL. [employer] predicts that continuing 1g IV Q8H will continue to achieve target AUC. * Culture Data: * Left buttock culture growing group B beta strep. * Buttock decubitus culture growing group B beta strep and staphylococcus species. * Urine catch (clean) growing two separate species of gram negative bacilli. * Blood cultures 2/2 NGTD. Initial Assessment, 10/14: * 32 year old M receiving VANCOMCYIN/ZOSYN for treatment of DECUB ULCERS W/ OSTEO. Pertinent microbiologic data includes: CULTURES PENDING. Hx of MRSA. Patient with paraplegia. Plan Vancomycin * Continue maintenance dosing at 1000 mg IV every 8 hours * Regimen is predicted to achieve target AUC/CLAUDIA of 400-600 mg/L.hr * Recommendations for deescalation pending full sensitivities, will plan to continue current regimen until new data available. Continue Zosyn 4.5gm IV every 8 hours. Pharmacy will continue to follow and will adjust dose/frequency as necessary. Thank you. Pharmacy has transitioned to AUC monitoring for vancomycin. AUC/CLAUDIA is the preferred PK/PD target and is associated with decreased risk of nephrotoxicity compared to traditional trough targets.
[2022-10-16] MEDS: diphenhydrAMINE Capsule 25 MG CAP PO SCH (20:44)
[2022-10-17] MEDS ORDERED: MoRPHine SULFATE 2 MG/ML CARP IV ONE (00:40)
[2022-10-17] MEDS: VANCOMYCIN HCL 1,000 MG in SODIUM CHLORIDE 0.9% 250 ML IV SCH ×2 (03:54→12:20)
[2022-10-17] MEDS: oxyCODONE/ACETAMINOPHEN 5mg/325mg TAB PO PRN ×4 (03:55→17:11)
[2022-10-17] MEDS: PIPERACILLIN/TAZOBACTAM 4.5 GM in DEXTROSE 5% 100 ML IV SCH (05:48)
[2022-10-17 07:29] LABS: Hematocrit (blood only) 32.7 % (42.0-52.0); Hemoglobin 10.1 g/dl (14.0-18.0); Mean Corpuscular Hemoglobin 24.5 pg (25.0-34.0); Mean Corpuscular Hgb Conc 30.9 g/dL (32.0-36.0); Mean Corpuscular Volume 79.4 fL (80.0-100.0); Mean Platelet Volume 8.8 fL (9.4-12.4); Platelet Count 337 K/uL (130-400); RDW Coefficient of Variation 14.3 % (11.5-14.5); RDW Standard Deviation 41.5 fL (36.4-46.3); Red Blood Count 4.12 M/uL (4.70-6.10); White Blood Count 3.48 K/ul (4.8-10.8)
[2022-10-17 07:53] LABS: Est GFR (African American) > 150.0 ml/min; Est GFR (Non-African American) 143.2 ml/min; Magnesium 1.8 mg/dl (1.7-2.4)
[2022-10-17] MEDS: METOPROLOL TARTRATE 25 MG TAB PO SCH (07:57)
[2022-10-17] MEDS: PROSOURCE NO CARB 30 ML/PKT PO SCH (07:58)
[2022-10-17] MEDS: OXYBUTYNIN CHLORIDE 5 MG TAB PO SCH (07:58)
[2022-10-17] MEDS: MULTIVITAMIN TAB PO SCH (07:58)
[2022-10-17] MEDS: ASCORBIC ACID 500 MG TAB PO SCH (07:59)
[2022-10-17] MEDS: OXcarbazepine 150 MG TABLET PO SCH (07:59)
[2022-10-17] MEDS: CYCLOBENZAPRINE HCL 10 MG TAB PO SCH ×2 (07:59→14:10)
[2022-10-17] MEDS: MAGNESIUM OXIDE 400 MG TAB PO SCH (08:02)
[2022-10-17] MEDS: GABAPENTIN 600 MG TAB PO SCH ×2 (08:02→14:10)
[2022-10-17] MEDS: DOCUSATE SODIUM/SENNA 50/8.6MG TAB PO SCH (08:03)
[2022-10-17] MEDS: ENOXAPARIN INJ 60 MG/0.6 ML SYR SQ SCH (08:03)
[2022-10-17] MEDS: ACETAMINOPHEN 325 MG TAB PO SCH (08:03)
[2022-10-17] MEDS: COLLAGENASE OINT 30 GM TUBE EXT SCH (10:45)
--- NOTE | 2022-10-17 11:55 | Discharge Summary ---
Date of Service October 17, 2022 Admission HPI Per Admitting Provider The patient is a 32-year-old male with a past medical history including neurogenic bladder, hiatal hernia with GERD, nutritional deficiency, decubitus ulcer of ischium stage IV, saddle pulmonary embolus, chronic pruritus, hemorrhoid, paraplegia following spinal cord injury. He developed a temperature while at the present today, had been given a dose of Levaquin p.o., and then sent to the emergency department. CT scan of abdomen pelvis showed bilateral stage IV decubitus ulcers overlying the ischial tuberosities with presumed involvement of the underlying bone. Air and fluid collection adjacent to the right ischial tuberosity measuring up to 2.3 cm Principal Diagnosis 1. Sepsis Syndrome (resolved) 2. A/c bilateral ischial osteomyelitis 3. Polymicrobial UTI - Pseudomonas and ESBL E. coli 4. Stage IV ischial wounds Discharge Exam GENERAL: 32 yo wd/wn M. NAD. LUNGS: Clear to auscultation bilaterally. CARDIOVASCULAR: Regular rate and rhythm. ABDOMEN: Soft, Nontender, nondistended. +BS. Neg salmeron's sign. Ostomy bag with stool. SKIN: b/l stage IV ischial wounds, R slightly larger than left. Discharge Data Allergies Allergy/AdvReac Type Severity Reaction Status Date / Time sulfamethoxazole Allergy Intermediate Unknown Verified 10/14/22 02:17 [From Bactrim] trimethoprim [From Bactrim] Allergy Intermediate Unknown Verified 10/14/22 02:17 Consultations 10/14/22 00:11 ED Decision to Admit Stat 10/14/22 14:35 Consult Infectious Diseases Routine 10/15/22 12:00 Consult Infectious Diseases Routine 10/17/22 10:01 Burn CD for patient Routine Ordered Studies Abdomen/Pelvis CT 10/13/22 22:16 Exam(s): CT ABDOMEN + PELVIS With Contrast IV Amt: 90ml EXAM: CT Abdomen and Pelvis With Intravenous Contrast CLINICAL HISTORY: Reason for exam: buttock infx, stage 4 Dec Ulcers. TECHNIQUE: Axial computed tomography images of the abdomen and pelvis with intravenous contrast. CTDI is 5.55 mGy and DLP is 297.47 mGy-cm. Automated exposure control was utilized for the study. A dose lowering technique was utilized adhering to the principles of ALARA. CONTRAST: Patient received 90ml of IV contrast COMPARISON: No relevant prior studies available. FINDINGS: Lung bases: Unremarkable. No mass. No consolidation. ABDOMEN: Liver: Unremarkable. No mass. Gallbladder and bile ducts: Unremarkable. No calcified stones. No ductal dilation. Pancreas: Unremarkable. No mass. No ductal dilation. Spleen: Unremarkable. No splenomegaly. Adrenals: Unremarkable. No mass. Kidneys and ureters: Unremarkable. No solid mass. No hydronephrosis. Stomach and bowel: Left upper quadrant colostomy. No obstruction. No mucosal thickening. PELVIS: Appendix: No findings to suggest acute appendicitis. Bladder: Hernandez catheter in place. Reproductive: Unremarkable as visualized. ABDOMEN and PELVIS: Intraperitoneal space: Unremarkable. No free air. No significant fluid collection. Bones/joints: Surgical hardware in place within the upper lumbar spine. No acute fracture. No dislocation. Soft tissues: Stage IV decubitus ulcers extending to the ischial tuberosities bilaterally (image 85 series 2) there is significant sclerosis of the underlying bone involvement is presumed. There is a small air and fluid collection adjacent to the right ischial tuberosity (image 88 series 2) which measures approximately 2.8 x 2.3 cm. Vasculature: Unremarkable. No abdominal aortic aneurysm. Lymph nodes: Unremarkable. No enlarged lymph nodes. IMPRESSION: Bilateral stage IV decubiti ulcers overlying the ischial tuberosities with presumed involvement of the underlying bone. Air and fluid collection adjacent to the right ischial tuberosity measuring up to 2.3 cm. Electronically signed by: Cam Marcos MD 10/13/22 23:53 PM Chest X-Ray 10/13/22 22:17 XR chest 1V portable HISTORY: Sepsis COMPARISON: None. FINDINGS: The lungs are clear. Cardiac silhouette is normal in size. No pleural effusions. No pneumothorax. Lower thoracolumbar spinal fusion hardware is noted. IMPRESSION: No acute process. ACT 112: Negative or not required by law. Electronically signed by: Baron Godwin M.D. 10/14/2022 7:55 AM Gallbladder Ultrasound 10/16/22 07:18 US gallbladder CLINICAL HISTORY: RUQ abd/pain TECHNIQUE: Multiple real-time sonographic images of the right upper quadrant we re obtained. Comparison: None available at the time of this dictation. FINDINGS: The liver is diffusely homogenous with normal contour and echogenicity. No focal mass lesions are seen. No intrahepatic ductal dilatation is seen. No gallstones or sludge are identified within the gallbladder. The gallbladder wall is not thickened. There is no pericholecystic fluid present. A sonographic M urphy's sign was not elicited by the defective cigarette slitter. The common duct measures 0.5 cm in diameter at the level of the hepatic artery. The visualized portions of the pancreas appear normal. The right kidney shows normal echogenicity, cortical thickness and renal contour. The right kidney shows no evidence of hydronephrosis or mass. Trace free fluid is seen. IMPRESSION: Unremarkable right upper quadrant ultrasound. ACT 112: Negative or not required by law. Electronically signed by: Osiel Lamar M.D. 10/16/2022 10:45 AM Hospital Course (1) Decubitus ulcer of ischium, stage 4: 32 yo paraplegic inmate who presented to [facility] on 10/13 with sepsis syndrome d/t UTI + Acute on chronic osteomyelitis Stage IV pressure ulcer of the bilateral ischium. Chronic since 2020. - Continue to apply Santyl to the wounds daily, and consult the wound care nurse. Right ischial wound would benefit from a wound VAC. - Blood, wound, and urine cultures are pending. Continue IV Vancomycin and Zosyn pending culture results. - Acetaminophen 650 mg p.o. every 6 hours as needed for mild pain or fever - Add Percocet (tiered) for pain control not relieved by APAP - Low air loss mattress, waffle boots, reposition q2hrs for offloading. - Pro[employer] protein supplement ordered-would continue this. - Probed R ischial wound with q-tip and sent for deep wound culture - Group B strep and MRSA Ultimately, the patient will need close follow-up and wound care after discharge. [facility] would benefit from [facility] after discharge. He will need an offloading mattress in addition to a ROHO cushion for offloading in his wheel chair. Recommend increased protein intake as an outpatient as well. Patient will also need close follow-up with the wound center. Could refer to [facility] upon discharge given proximity to [facility]. (2) Acute osteomyelitis: - CT 10/13/22 showing bilateral ischial wounds with bony involvement of the ischial tuberosities. Fluid collection measuring 2.3cm adjacent to the right ischial tuberosity. ESR 101 - Discussed w/ IR consult re: drainage of adjacent fluid or bone bx. - Recommended deep wound culture with probing decubitus would obtain same fluid that is tracking/spreading to bone which was obtained 10/15-growth of GBS and MRSA as above - Consulted ID - anticipate will require 6w (minimum) of tailored IV abx therapy; however, will also require wound and bone debridement for definitive treatment - Discussed plan of care with bilingual medical assistant at [facility] re: recommendations for treatment from ID which would involve debridement of wounds as well as bone debridement for definitive treatment of osteo + IV antibiotics - Discussed with Dr. Murrell, she is agreeable to patient being transferred for appropriate treatment. Plastics not available this week to perform surgery and patient is known from prior treatment at [facility] - Contacted [facility], d/w hospitalists, Dr. Rogers and Dr. Regalado, both which accepted patient but cover different campuses. Ultimately, whichever one has a bed available first will take him. - Transfer paperwork filed, order for chart to be copied and images to burned to disc - [facility] updated (3) Urinary tract infection: - UA grossly abnormal - empirically on Vanc/Zosyn as above - Prelim urine cx with growth of 2 gram neg bacilli-ESBL E. coli + Pseudomonas - Continue Zosyn (4) Abdominal pain: - Brief episode that occurred after eating dinner on 10/15 - Underwent RUQ ultrasound which is completely normal - Able to eat/drink today and has had no further complaints for me - Noted that he was medicated with a dose of IV Morphine overnight by resident for 2mg (5) Saddle pulmonary embolus: - On chronic Lovenox 60 mg sq every 12 hours. (6) Paraplegia following spinal cord injury: Paraplegia secondary to spinal cord injury/chronic pain syndrome - Stable neurologic deficits - Continue cyclobenzaprine/gabapentin/Trileptal/oxybutynin/senna S (7) Neurogenic bladder: Continue oxybutynin - Doxazosin held due to borderline blood pressure at this time-however, believe that his current BPs (93/57) are his baseline (8) Pressure injury of deep tissue of right ankle: Patient also has a deep tissue injury to the right anterior ankle. No open areas noted. Patient states this occurred from wearing a compression stocking. - Protect with an Optifoam. - Will order bilateral waffle boots for offloading as well. Plan Patient is medically stable for discharge/transfer to [facility] once bed is available. He can be transported via ground BLS. Paperwork filled out and jail updated. Continue all current interventions in the interim until transfer. Above plan of care has been d/w Dr. Trent. Total Time Total Time Spent Total Time Spent (In Minutes): >30 minutes Discharge Plan Discharge Items Patient Disposition: Transfer Acute Care Hospital Reason For Visit: OSTEOMYELITIS B/L ISCHIAL TUBEROSITIES Discharge Diagnosis: osteomyelitis b/l ischial tuberosities polymicrobial urinary tract infection stage IV ischial wounds Condition on Discharge: Fair Activity: Resume your previous activity Non-emergency contact: Primary Care Provider Call non-emergency contact if: you have any medication questions Follow-up/Referrals: [facility] DR[facility] [Primary Care Provider] - Diet: Regular Addtl Attending Provider Instructions: Patient being transferred to [facility] in order to undergo surgical debridement and ongoing IV antibiotic therapy to treat your acute on chronic bone infection. Currently on the following IV antibiotics: Zosyn 4.5g IV q8h and Vancomycin 1000mg IV q8h Pending Studies at Discharge: No Stand-Alone Forms: [facility] Skilled Items Patient informed of condition?: Yes DNR: No Discharge Level of Care: Other Communicable Disease: No Discharge Prognosis: Stable Lines: Peripheral IV Urinary Catheter: Yes Medications and DC Order Prescriptions: [place] No Carb 15-60 gram-kcal/30 mL Liquid In Packet 30 ml PO BID Qty: 0 0RF Continued multivitamin Tablet 1 tab PO DAILY cyclobenzaprine [Flexeril] 10 mg Tablet 10 mg PO TID acetaminophen [Tylenol] 325 mg Tablet 650 mg PO BID gabapentin 600 mg Tablet 1,200 mg PO TID Rx Instructions: Crush sennosides-docusate sodium [Senna-S] 8.6-50 mg Tablet 2 tab-cap PO BID doxazosin 8 mg Tablet 8 mg PO HS ascorbic acid (vitamin C) [Vitamin C] 500 mg Tablet 500 mg PO BID diphenhydramine HCl [Benadryl] 25 mg Capsule 25 mg PO HS lidocaine 5 % Adhesive Patch,Medicated 2 patch TOPICAL DAILY Rx Instructions: leave on most painful area for up to 12 hrs oxcarbazepine [Trileptal] 600 mg Tablet 600 mg PO BID oxybutynin chloride 5 mg Tablet 5 mg PO BID enoxaparin [Lovenox] 60 mg/0.6 mL Syringe 60 mg SUBCUT BID metoprolol tartrate 25 mg Tablet 25 mg PO BID ferrous sulfate 324 mg (65 mg iron) Tablet,Delayed Release (Dr/Ec) 324 mg PO Q OTHER DAY magnesium oxide 400 mg magnesium Tablet 800 mg PO BID Discontinued Lactated Ringers Iv 150 ml IV .HR Rx Instructions: Infuse 1000 ml IVdaily. Stop 10/14/2022 Admission Data Admit Date/Time: 10/14/22 01:41 Attending Provider: Shen Trent Admit Provider: Mendez Young Primary Care Provider: [facility] Other Providers: Mendez Young ; Kimberley Palacios ; Alejandro Major ; Shruti Crouch ; Murphy Dodge ; Sandrine Jade ; Ce Vigil ; Zahra Tyler ; Dina Giang ; Shantal Echavarria Coding Level of Care Code 27492 INP/OBS DISCH >30 MIN Diagnoses Decubitus ulcer of ischium, stage 4 L89.304 Acute osteomyelitis M86.10 Urinary tract infection N39.0 Abdominal pain R10.9 Saddle pulmonary embolus I26.92 Paraplegia following spinal cord injury G82.20 Neurogenic bladder N31.9 Pressure injury of deep tissue of right ankle L89.516
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
[2022-10-18] MEDS ORDERED: VANCOMYCIN LEVEL ONE (03:30)
--- NOTE | 2022-10-19 10:19 | Coding Query ---
CODING QUERY To promote full compliance with coding requirements relating to patient care, provider participation is requested in all cases of sonar watchstander uncertainty. Please assist us with the question(s) below: Coding Question(s): The ER and H&P document Sepsis and the 10/14 Progress Note documents possible Sepsis, however, the Discharge Summary documents Sepsis Syndrome (Sepsis Syndrome would not be coded as Sepsis). Please clarify below, in your clinical opinion, regarding Sepsis documentation: ( xx ) Possible Sepsis ( ) Sepsis Syndrome, with No Sepsis - Sepsis is ruled-out ( ) Other: Please Specify Physician's Response(s): Thank you Mamta Gilman Principal Diagnosis: "that condition established after study, to be chiefly responsible for occasioning the admission of the patient to the hospital for care." Co-Existing Principal Diagnosis: "when two or more diagnoses equally meet the criteria for principal diagnosis as determined by the circumstances of admission, diagnostic work up, and/or therapy provided, and the Alphabetic Index, Tabular List, or another coding guideline does not provide sequencing direction, any one of the diagnoses may be sequenced first." "When the physician has documented what appears to be a current diagnosis in the body of the record, but has not included the diagnosis in the final diagnostic statement, the physician should be asked whether the diagnosis should be added." (Source Coding [facility] 2 QTR90. p3-4) SUJEY
== END 2022-10-17 18:39 | disposition short-term general hospital (02) | DRG 871 ==
LOC: ED 22:05 → EDBD 22:05 → 2W 10-14 01:41 → SUATTDRO 10-14 01:41 → 2W 10-14 02:18